=== PATIENT | female | born 1970 | race African-American/Black ===

== ENCOUNTER 2016-12-24 18:58 | Emergency (ER) | payer OTHER ==
[2016-12-24 19:06] VITALS: BMI 30.7
--- NOTE | 2016-12-24 20:06 | CT ---
HISTORY: Headache and hypertension. Study: CT brain without contrast Comparison: None. Technique: Multiple axial images of the brain were obtained from the skull base to the vertex without administr ation of IV contrast. Findings: No acute intraparenchymal hemorrhage or mass can be identified. No extra-axial fluid collections ar e seen. No alteration in the attenuation of the brain parenchyma can be identified to suggest acute or subacute ischemic change. The ventricular system is symmetric and nondilated. The extracranial structures are grossly unremarkable. IMPRESSION: 1. No acute intracranial process can be identified. Findings of chronic rhinitis. 2. Metallic structure near the [place] with associated artifact most likely reflects changes f rom a prior aneurysmal clipping. No subarachnoid bleeding is currently seen Reported By:
--- NOTE | 2016-12-24 20:08 | DR.GENAD ---
HPI - PCP Primary Care Physician: BRENNON - HPI Comment HPI Comment: S/P ANEURYM. PAIN SIMILAR TO ANEUSYM PAIN. BP IS ALSO ELEVATED. NO FEVER. - Complaint/Symptoms Chief Complaint Doctors Comments: HEADACHE, ELEVATED BLOOD PRESSURE TIMES ONE DAY. Chief Complaint:: HEADACHE STARTED LAST NIGHT, ELEVATED BLOOD PRESSURE. HAS TAKEN BP MEDS ORDERED. HAS NOT TAKEN ANYTHING FOR HEADACHE. STATES, "THE ONLY OTHER TIME MY HEAD HURT LIKE THIS IS WHEN I HAD A BRAIN ANEURYSM IN 2012." Self Treatment fo Chief Complaint: BP MEDS - Nurses notes reviewed Nurses Notes Review: Yes - Source History Provided: Patient - Mode of Arrival Mode of Arrival: Ambulatory - Timing Onset of Chief Complaint: 12/23/16 Came on: Suddenly - Duration Duration: Constant Duration: Days - Severity Severity: Moderate PMH - PMH Past Medical History: Yes Past Medical History: Anxiety, Dyslipidemia, Hypertension Past Medical History Comment: THYROID. BRAIN ANEURYSM 2012 Past Surgical History: Yes Surgical History: Thyroidectomy Past Surgical History Comment: NECK SURGERY FROM HERNIATED DISC - Family History History of Family Medical Conditions: Yes Family Medical History: Diabetes Mellitus, Hypertension - Social History Type of Tobacco Use: Cigarettes Alcohol Use: None Do you use any recreational Drugs:: No Lives With: Spouse Lives Where: Home - infectious screening Have you traveled outside the country in the last 6 months?: No Isolation: Standard ROS - Review of Systems Constitutional: No Symptoms Reported Eyes: No Symptoms Reported ENTM: No Symptoms Reported Respiratoy: No Symptoms Reported Cardiovascular: No Symptoms Reported Gastrointestinal/Abdominal: No Symptoms Reported Genitourinary: No Symptoms Reported Neurological: Headache Musculoskeletal: Muscle Pain Integumentary: No Symptoms Reported Hematologic/Lymphatic: No Symptoms Reported Endocrine: No Symptoms Reported All Other Systems: Reviewed and Negative PE - Vital Signs Vitals: Temperature 97.9 F Pulse Rate [Brachial] 57 Pulse Rate 77 Respiratory Rate 18 Blood Pressure [Left Arm] 146/90 Blood Pressure 156/107 O2 Sat by Pulse Oximetry 100 - General Limitations: No Limitations General Appearance: Alert - Head Head Exam: Normal Inspection - Eyes Eye exam: Normal Appearance, PERRL, EOMI. negative: Scleral Icterus, Conjunctival Injection, Nystagmus - ENT ENT Exam: Normal External Ear Exam External Ear Exam: Normal External Inspection TM/Canal Exam: Bilateral Normal Nose Exam: Normal Nose Exam Mouth Exam: Normal Inspection Throat Exam: Normal Inspection - Neck Neck Exam: Trachea Midline - Chest Chest Inspection: Symmetric Chest Wall Rise - Respiratory Respiratory Exam: Normal Lung Sounds Bilat Respiratory Exam: Bilateral Clear to Auscultation - Cardiovascular Cardiovascular Exam: Regular Rate, Normal Rhythm, Normal Heart Sounds - Abdominal Exam Abdominal Exam: Normal Bowel Sounds, Soft. negative: Tenderness - Extremities Extremities Exam: Normal Inspection - Back Back Exam: Normal Inspection - Neurologic Neurological Exam: Alert, Oriented X3, CN II-XII Intact, Normal Gait, Reflexes Normal. negative: Motor Sensory Deficit - Psychiatric Psychiatric Exam: Anxious - Skin Skin Exam: Normal Color MDM - Additional Information Additional Information Obtained From: Family - Differential Diagnosis Differential Diagnosis: HEADACHE, CVA, HTN. , ANEURYM Course - Treatment Treatment: SEE ORDERS. MED FOR PAIN IN ED. PAIN IMPROVED. BP DECREASING ALSO. - Education/Counseling Education/Counseling: Patient, Family, Education Educated On: Diagnosis, Needs for Follow Up ROR - XRAY XRAY Interpreted by: Radiologist XRAY Findings: REPORT DISCUSS WITH PATIENT. - Diagnosis Discharge Problem: Headache Qualifiers: Headache type: tension-type Headache chronicity pattern: acute headache Intractability: intractable Qualified Code(s): G44.201 - Tension-type headache, unspecified, intractable Hypertension Qualifiers: Hypertension type: essential hypertension Qualified Code(s): I10 - Essential ( primary) hypertension - Discharge Plan Disposition: HOME, SELF-CARE Condition: Stable Prescriptions: [id number] [Fioricet Tab] 1 tab PO Q8H PRN #20 tab PRN Reason: Migraine Headache - Follow ups/Referrals Follow ups/Referrals: PARTHA WILLETT [Primary Care Provider] - 1 day - Instructions Instructions: Migraine Headache, Hypertension Additional Instructions: RETURN TO ED IF WORSE.
[2016-12-24] MEDS ORDERED: TORADOL 60 MG VIAL IM ONE (20:16)
[2016-12-24] MEDS ORDERED: ZOFRAN INJ 4 MG VIAL IVP ONE (20:16)
[2016-12-24] MEDS ORDERED: ZOFRAN INJ 4 MG VIAL IM ONE (20:24)
[2016-12-24] MEDS ORDERED: ZOFRAN INJ 4 MG VIAL ONE (20:24)
[2016-12-24] MEDS ORDERED: TORADOL 60 MG VIAL ONE (20:24)
[2016-12-24 20:51] VITALS: BP 146/90
== END 2016-12-24 21:19 | disposition home or self-care (01) ==
LOC: ER 19:12
DX: G44.201 Tension-type headache, unspecified, intractable (principal); I10 Essential (primary) hypertension
CPT/HCPCS: 70450; 96372; 99283; J1885; J2405

== ENCOUNTER → 2016-12-25 | Outpatient (CLI) | payer OTHER ==
--- NOTE | 2016-12-25 11:11 | RAD ---
HISTORY: Lumbosacral neuritis Study: 5 views of the lumbar spine Comparison: MRI of the lumbar spine 12/25/2016 Findings: Normal alignment without subluxation or listhesis. Disk heights are maintained. Vertebral body heig hts are normal. Sacroiliac joints are unremarkable. No evidence for acute fracture can be identifie d. IMPRESSION: 1. No acute abnormality of the lumbar spine. However would defer to MRI done same day as this is a f ar more sensitive and specific examination. Reported By:
--- NOTE | 2016-12-25 11:13 | RAD ---
HISTORY: Brachial neuritis Study: 5 views of the cervical spine. Comparison: MRI cervical spine same day Findings: ACDF C5 through C7. Degenerative disc disease at those levels. No significant subluxation on flexio n or extension. The vertebral body heights are normal. No prevertebral soft tissue swelling can be i dentified. The odontoid appears intact. The lateral masses of C1 align with the body of C2. IMPRESSION: 1. ACDF C5-C7. Would defer to report from same day MRI if that is a far more sensitive and specific examination. Reported By:
--- NOTE | 2016-12-26 07:47 | MRI ---
MRI lumbar spine without contrast Indication: Lower back pain which extends into the legs Technique: Multiplanar, multi sequence imaging of the lumbar spine without IV contrast administratio n. Findings: Lumbar spine alignment is maintained. Disk desiccation is noted at L3-4 and L5-S1. No sign ificant disc space loss. No prevertebral or paraspinal soft tissue swelling or fluid collection iden tified. Conus has a normal termination. Small cysts are present within both kidneys. Decreased round ed T2 signal within the partially visualized uterus likely represent uterine fibroids. At T12-L1 unremarkable. At L1-2 mild facet arthropathy without spinal canal or neural foraminal stenosis. At L2-3 mild facet arthropathy without significant disc bulge causes no spinal canal stenosis with m ild bilateral neural foraminal narrowing. At L3-4 moderate facet arthropathy with small amount of fluid within both facet joints without signi ficant disc bulge causes no spinal canal stenosis with mild left and mild to moderate right sided ne ural foraminal narrowing. At L4-5 moderate facet arthropathy with moderate amount of fluid within both facet joints with mild broad-based disc bulge causes mild spinal canal stenosis with mild left and right sided neural zara inal narrowing. At L5-S1 advanced facet arthropathy with broad-based disc bulge causes mild spinal canal stenosis wi th mild to moderate left and mild right-sided neural foraminal narrowing. Impression: Multilevel discogenic degenerative change and facet arthropathy causing varying degrees of spinal canal and neural foraminal stenosis as described above. Reported By:
--- NOTE | 2016-12-29 08:31 | MRI ---
MRI OF THE CERVICAL SPINE WITHOUT IV CONTRAST CLINICAL INDICATION: Cervical radiculopathy. TECHNIQUE: Pre-contrast sagittal T1-, T2-, and T2-w fat-saturated images, and axial T1- and T2-w dary ges of the cervical spine. COMPARISON: None. FINDINGS: The cervical spine demonstrates normal alignment. Vertebral bodies are normal height. Patient is sta tus post ACDF C5 through C7. There is a normal marrow signal pattern. Intervertebral discs are pedro l in height and signal intensity. There is no abnormality of the cranio-cervical junction. The inclu ded paraspinal soft tissues are grossly normal. Evaluation of the individual levels demonstrates: C1-2: Normal C2-3: Normal C3-4: Disk osteophyte complex without significant central stenosis. C4-5: Primarily left-sided disk osteophyte complex without central stenosis. Moderate to severe left -sided neural foraminal stenosis. C5-6: Disk osteophyte complex with mild central stenosis and moderate bilateral foraminal stenosis. C6-7: Disk osteophyte complex without central stenosis. Moderate to severe right-sided neural forami nal stenosis. C7-T1: Normal IMPRESSION: 1. Multilevel degenerative disc disease with varying degrees of bilateral neural foraminal stenosis as above. Reported By:
== END ==
LOC: RAD 08:37
PROVIDERS: ATTEND Neurological Surgery
DX: M54.12 Radiculopathy, cervical region (principal); M54.16 Radiculopathy, lumbar region
CPT/HCPCS: 72050; 72120; 72141; 72148

== ENCOUNTER → 2017-03-19 | Outpatient (CLI) | payer OTHER ==
--- NOTE | 2017-03-19 15:56 | RAD ---
Cervical spine, five views Indication: Brachial neuritis Comparison: December 25, 2016 Findings: C5-C7 ACDF hardware appears well positioned without complication. Cervical spine alignment appears normal. No acute fracture, subluxation or abnormal translation is identified. There is no p revertebral soft tissue swelling. Impression: Stable C5-C7 ACDF without hardware complication or acute osseous abnormality. Reported By:
--- NOTE | 2017-03-19 16:01 | RAD ---
Lumbar spine, four views Indication: Lower back pain. Comparison: December 25, 2016 Findings: Alignment appears normal. No acute fracture, subluxation or abnormal translation is identi fied. Intervertebral disc spaces appear maintained. There is moderate multilevel facet arthropathy, greatest caudally, unchanged. SI joints appear normal. Calcified uterine fibroid is noted. Impression: Stable moderate facet arthropathy of the lower lumbosacral spine without acute osseous abnormality. Reported By:
--- NOTE | 2017-03-19 18:37 | CT ---
HISTORY: Bracheal neuritis. Study: CT cervical spine without contrast Comparison: MRI cervical spine dated December 25, 2016 and cervical spine series dated March 19, 2017. Technique: Multiple axial images of the cervical spine were obtained from the skull base to the thor acic inlet without administration of IV contrast. Sagittal and coronal reformats were performed and reviewed. Dose reduction techniques including Automated Exposure Control (AEC) and adjustment of mA and kV were utilized. Findings: There is reversal of the normal cervical lordosis. No acute fracture or listhesis. Patient is status post anterior cervical fusion with plate/screw fixation and disk spacers at C5 through C7. Visualiz ed hardware appears unchanged. No significant spinal canal stenosis. Mild to moderate neural foramin al narrowing is seen at C5 through C7 bilaterally. The prevertebral soft tissues and lung apices renita ear normal. IMPRESSION: Chronic findings as above. Reported By:
--- NOTE | 2017-03-20 08:14 | CT ---
Lumbar spine CT without contrast Indication: Lumbosacral neuritis Technique: Axial CT images of the lumbar spine were obtained without contrast. Reformatted images in the coronal and sagittal planes were also generated for review. Comparison: Radiograph March 19, 2017, MRI December 25, 2016 Findings: Lumbar spine vertebral body heights and alignment appear normal. No acute fracture , subluxation or aggressive osseous lesion is identified. There are mild degenerative changes of the bilateral SI wei nts. The intervertebral disc spaces appear well maintained. There are broad-based posterior disc bulges a nd moderate facet arthropathy at L4-L5 and L5-S1 with mild-moderate resultant bilateral foraminal na rrowing at L4-L5. No high-grade osseous canal or foraminal narrowing is appreciated at any level. Calcified granulomata are noted within the right hepatic dome. There is minimal atherosclerosis of t he abdominal aorta. Remaining visualized soft tissues demonstrate a grossly normal, noncontrast appe arance. Impression: Moderate facet arthropathy of the inferior lumbosacral spine with mild-moderate resultant bilateral neural foraminal narrowing at L4-L5. No high-grade osseous canal or foraminal narrowing is identifie d at any level. Reported By:
== END | disposition home or self-care (01) ==
LOC: RAD 14:08
PROVIDERS: ATTEND Neurological Surgery
DX: M54.12 Radiculopathy, cervical region (principal); M54.16 Radiculopathy, lumbar region; M54.2 Cervicalgia; M47.896 Other spondylosis, lumbar region; Z98.1 Arthrodesis status
CPT/HCPCS: 72050; 72120; 72125; 72131

== ENCOUNTER 2017-03-22 23:18 | Emergency (ER) | payer OTHER ==
[2017-03-22 23:36] VITALS: BP 135/91; BMI 48.1
--- NOTE | 2017-03-23 00:12 | DR.GENAD ---
HPI - PCP Primary Care Physician: Franchesca - HPI Comment HPI Comment: SEE BELOW. - Complaint/Symptoms Chief Complaint Doctors Comments: FELL AT HOME ON THE STEP AND INJURED RIGHT ANKLE, LEG AND FOOT. PATIENT SAID SHE IS NOT ABLE TO BEAR WEIGHT ON THE RIGHT SIDE. Chief Complaint:: "I fell down some stairs today around 8 and now I can't even walk." - Nurses notes reviewed Nurses Notes Review: Yes - Source History Provided: Patient - Mode of Arrival Mode of Arrival: Wheelchair - Timing Onset of Chief Complaint: 03/22/17 Came on: Suddenly - Duration Duration: Constant Duration: Hours - Severity Severity: Moderate PMH - PMH Past Medical History: Yes Past Medical History: Anxiety, Dyslipidemia, Hypertension Past Surgical History: Yes Surgical History: Ortho Surgery, Thyroidectomy, Other Past Surgical History Comment: 2 Brain surgery, Back, Carpel tunnel, knee surgery - Family History History of Family Medical Conditions: Yes Family Medical History: Diabetes Mellitus, Hypertension - Social History Does patient currently use any type of tobacco product: Yes Have you used tobacco products in the last 12 months: Yes Type of Tobacco Use: Cigarettes Does any household member use tobacco: Yes Alcohol Use: None Do you use any recreational Drugs:: No Lives With: Family Lives Where: Home - infectious screening In the last 2 months have you had wt loss of >10#?: NO Have you had fever, night sweats or hemotysis?: No Have you traveled outside the country in the last 6 months?: No Isolation: Standard ROS - Review of Systems Constitutional: No Symptoms Reported Eyes: No Symptoms Reported ENTM: No Symptoms Reported Respiratoy: No Symptoms Reported Cardiovascular: No Symptoms Reported Gastrointestinal/Abdominal: No Symptoms Reported Genitourinary: No Symptoms Reported Neurological: No Symptoms Reported Musculoskeletal: Joint Pain, Joint Swelling, Muscle Pain Integumentary: Bruises Hematologic/Lymphatic: No Symptoms Reported Endocrine: No Symptoms Reported All Other Systems: Reviewed and Negative PE - Vital Signs Vitals: Temperature 98.2 F Pulse Rate 89 Respiratory Rate 16 Blood Pressure [Left Arm] 146/90 Blood Pressure 135/91 O2 Sat by Pulse Oximetry 96 - General Limitations: No Limitations General Appearance: Alert - Head Head Exam: Normal Inspection - Eyes Eye exam: Normal Appearance, PERRL, EOMI - ENT ENT Exam: Normal External Ear Exam External Ear Exam: Normal External Inspection TM/Canal Exam: Bilateral Normal Nose Exam: Normal Nose Exam Mouth Exam: Normal Inspection Throat Exam: Normal Inspection - Neck Neck Exam: Normal Inspection - Chest Chest Inspection: Symmetric Chest Wall Rise - Respiratory Respiratory Exam: Normal Lung Sounds Bilat Respiratory Exam: Bilateral Clear to Auscultation - Cardiovascular Cardiovascular Exam: Regular Rate, Normal Rhythm, Normal Heart Sounds - Abdominal Exam Abdominal Exam: Normal Bowel Sounds, Soft. negative: Tenderness - Extremities Extremities Exam: Tenderness (RIGHT LEG AND ANKLE.), Joint Swelling (RIGHT ANKLE ) - Back Back Exam: Normal Inspection - Neurologic Neurological Exam: Alert, Oriented X3 - Psychiatric Psychiatric Exam: Anxious - Skin Skin Exam: Erythema MDM - Differential Diagnosis Differential Diagnosis: SPRAIN, CONTUSION OR FRATURE, RIGHT ANKLE AND LEG. Course - Treatment Treatment: SEE ORDERS. IM TORADOL IN ED. PAIN DECREASING. - Education/Counseling Education/Counseling: Patient, Family, Education Educated On: Treatment, Diagnosis, Needs for Follow Up ROR - XRAY XRAY Interpreted by: Radiologist XRAY Findings: REPORT DISCUSS WITH PATIENT - Diagnosis Discharge Problem: Right ankle sprain Qualifiers: Encounter type: initial encounter Involved ligament of ankle: unspecified ligament Qualified Code(s): S93.401A - Sprain of unspecified ligament of right ankle, initial encounter Contusion of leg, right Qualifiers: Encounter type: initial encounter Qualified Code(s): S80.11XA - Contusion of right lower leg, initial encounter - Discharge Plan Condition: Stable Prescriptions: Acetaminophen with Codeine [Tylenol/Codeine #3 300-30 mg] 1 tab PO Q6H PRN #15 tab PRN Reason: Pain - Follow ups/Referrals Follow ups/Referrals: NFD,None [Primary Care Provider] - 3 days - Instructions Instructions: Contusion, [id number], Ankle Sprain, [id number] Additional Instructions: RETURN TO ED IF WORSE.
[2017-03-23] MEDS ORDERED: TORADOL 60 MG VIAL ONE (00:25)
[2017-03-23] MEDS: TORADOL 60 MG VIAL IM ONE (00:27)
--- NOTE | 2017-03-23 01:27 | RAD ---
Right tibia and fibula-two views Indication: Pain after fall. Findings: There is knee and ankle joint degenerative change without cortical lucency or malalignment . Impression: No acute right foreleg fracture. Reported By:
--- NOTE | 2017-03-23 01:35 | RAD ---
Right foot three views Indication: Pain after trauma. Findings: There is great toe MTP joint degenerative change. There is no cortical lucency or malalign ment. Midfoot DJD with soft tissue swelling noted. Impression: No displaced fracture. Degenerative change and swelling. Reported By:
== END 2017-03-23 01:45 | disposition home or self-care (01) ==
LOC: ER 23:18
DX: S93.401A Sprain of unspecified ligament of right ankle, initial encounter (principal); S80.11XA Contusion of right lower leg, initial encounter; W19.XXXA Unspecified fall, initial encounter; Y92.009 Unspecified place in unspecified non-institutional (private) residence as the place of occurrence of the external cause
CPT/HCPCS: 73590; 73630; 96372; 99282; 99283; J1885

== ENCOUNTER → 2017-09-24 | Outpatient (CLI) | payer OTHER ==
[2017-03-22 23:24] VITALS: BP 146/90
--- NOTE | 2017-09-24 14:48 | RAD ---
HISTORY: Low back pain Study: Lumbar spine AP, lateral, obliques, spot Comparison: 03/19/2017 Findings: The alignment is normal. The vertebral bodies are of average height. The disc spaces are preserved wi th the exception of narrowing at L4-5. The pedicles are intact. The SI joints demonstrate some sclero sis bilaterally. Diffuse bilateral facet degenerative joint disease is present. IMPRESSION: Diffuse bilateral facet degenerative joint disease Bilateral SI joint degenerative joint disease Reported By:
== END | disposition home or self-care (01) | DRG 552 ==
LOC: RAD 14:09
PROVIDERS: ATTEND Specialist
DX: M54.5 Low back pain (principal); M47.896 Other spondylosis, lumbar region
CPT/HCPCS: 72110

== ENCOUNTER 2017-10-28 20:01 | Emergency (ER) | payer OTHER ==
[2017-10-28 20:11] VITALS: BMI 44.6
[2017-10-28] MEDS ORDERED: TORADOL 30 MG VIAL IM ONE (20:52)
[2017-10-28] MEDS ORDERED: TORADOL 60 MG VIAL ONE (20:57)
--- NOTE | 2017-10-28 21:09 | DR.GENAD ---
HPI - PCP Primary Care Physician: ada - Complaint/Symptoms Chief Complaint Doctors Comments: pain is chrionic x 5-6 months but worse today , pt has to lift and transfer her mother Chief Complaint:: right shoulder pain worse tonight. has seen hugo peterson, specialist told her rotator cuff is messed up. has had it injected before. for last 5-6 months. needs something for pain tonight and get it checked. Self Treatment fo Chief Complaint: awaiting ortho appt - Nurses notes reviewed Nurses Notes Review: Yes - Source History Provided: Patient - Mode of Arrival Mode of Arrival: Ambulatory - Timing Onset of Chief Complaint: 10/28/17 PMH - PMH Past Medical History: Yes Past Medical History: Anxiety, Dyslipidemia, Hypertension Past Medical History Comment: rec'd injection in her back earlier today Past Surgical History: Yes Surgical History: Thyroidectomy - Family History History of Family Medical Conditions: Yes Family Medical History: Diabetes Mellitus, Hypertension - Social History Alcohol Use: None Do you use any recreational Drugs:: No Lives With: Spouse Lives Where: Home - infectious screening Have you traveled outside the country in the last 6 months?: No Isolation: Standard ROS - Review of Systems Eyes: No Symptoms Reported ENTM: No Symptoms Reported Respiratoy: No Symptoms Reported Cardiovascular: No Symptoms Reported Gastrointestinal/Abdominal: No Symptoms Reported Genitourinary: No Symptoms Reported Neurological: No Symptoms Reported Musculoskeletal: See HPI, Joint Pain, Muscle Pain, Muscle Stiffness, Right, Shoulder Integumentary: No Symptoms Reported Hematologic/Lymphatic: No Symptoms Reported Endocrine: No Symptoms Reported Psychiatric: No Symptoms Reported All Other Systems: Reviewed and Negative PE - Vital Signs Vitals: Temperature 98.8 F Pulse Rate 84 Respiratory Rate 18 Blood Pressure [Left Arm] 146/90 Blood Pressure 111/76 O2 Sat by Pulse Oximetry 99 - General Limitations: No Limitations General Appearance: Alert, In No Apparent Distress - Head Head Exam: Normal Inspection, Atraumatic - Eyes Eye exam: Normal Appearance - ENT ENT Exam: Normal Exam - Neck Neck Exam: Normal Inspection, Full ROM, Trachea Midline. negative: Tenderness, Meningismus, Lymphadenopathy - Chest Chest Inspection: Normal Inspection - Respiratory Respiratory Exam: Normal Lung Sounds Bilat - Cardiovascular Cardiovascular Exam: Regular Rate, Normal Heart Sounds - Abdominal Exam Abdominal Exam: Normal Inspection, Normal Bowel Sounds, Soft. negative: Tenderness - Extremities Extremities Exam: Normal Capillary Refill - Psychiatric Psychiatric Exam: Normal Affect, Normal Mood - Skin Skin Exam: Warm - Other Exam Other Exam: rt shoulder +tender all planes of motion, no crepitus, no palp bony deformity. No muscle wasting. ROR - XRAY XRAY Interpreted by: Radiologist XRAY Findings: mod degenerative changes, nothing acute seen on shoulder xray - Diagnosis Discharge Problem: Right shoulder pain - Discharge Plan Disposition: HOME, SELF-CARE Condition: Stable Prescriptions: Ketorolac Tromethamine [Toradol Tab] 10 mg PO Q8H PRN #12 tab PRN Reason: Pain - Follow ups/Referrals Follow ups/Referrals: NFD,None [Primary Care Provider] - 3 days - Instructions
--- NOTE | 2017-10-28 21:26 | RAD ---
Three views of the right shoulder. Indication: Right shoulder pain without trauma. Findings: There is moderate degenerative change within the right AC joint. Glenohumeral joint demonst rates no significant degenerative change. No acute fracture, dislocation or localizing soft tissue sw elling within the right shoulder. No displaced right-sided rib fracture. Impression: 1.No acute radiographic abnormality within the right shoulder. 2. Moderate osteoarthrosis of the AC joint. Reported By:
[2017-10-28 21:55] VITALS: BP 115/72
== END 2017-10-28 21:52 | disposition home or self-care (01) ==
LOC: ER 20:14
DX: M25.511 Pain in right shoulder (principal); M19.90 Unspecified osteoarthritis, unspecified site
CPT/HCPCS: 73030; 96372; 99282; J1885

== ENCOUNTER → 2017-12-29 | Outpatient (CLI) | payer OTHER ==
--- NOTE | 2017-12-29 13:57 | RAD ---
HISTORY: Bilateral hip pain, nontraumatic Study: Bilateral hips AP, frog-leg, AP pelvis Comparison: None Findings: The pelvic bones and SI joints are intact. The hip joints are bilaterally intact. No joint erosions a re noted. No fracture, lytic, or blastic lesions are identified. No periarticular soft tissue abnorma lity is identified. Incidental note is made of a 3.5 cm calcified uterine fibroid. IMPRESSION: Normal hips bilaterally 3.5 cm calcified uterine fibroid Reported By:
== END ==
LOC: RAD 13:10
PROVIDERS: ATTEND Nurse Practitioner Family
DX: M25.551 Pain in right hip (principal); M25.552 Pain in left hip
CPT/HCPCS: 73521